=== PATIENT | female | born 1945 | race Caucasian/White ===

== ENCOUNTER 2017-07-04 08:32 | Day surgery (SDC) | payer MEDICARE ==
[~2017-07-04] VITALS: Ht 165.1 cm; Wt 59.3 kg
[~2017-07-04 08:32] MED LIST: ASCO10004 PO; CHOL500015 PO; HYDRO EYES PO; LEVO88TA2 PO; TERI2.4P SC; VITA400C43 PO; calcium PO
[2017-07-04] MEDS ORDERED: LACTATED RINGERS 1,000 ML IV SCH (09:18)
[2017-07-04 09:22] VITALS: BP 128/79
[2017-07-04] MEDS ORDERED: EPHEDRINE 50 MG/ML, 1ML ONE (11:15)
[2017-07-04] MEDS ORDERED: DEXAMETHASONE 4 MG/ML, 1ML ONE (11:15)
[2017-07-04] MEDS ORDERED: ONDANSETRON 2MG/ML, 2ML ONE (11:15)
[2017-07-04] MEDS ORDERED: PROPOFOL 10 MG/ML, 50ML ONE (11:15)
[2017-07-04] MEDS ORDERED: PROPOFOL 10 MG/ML, 20ML ONE (11:15)
[2017-07-04] MEDS ORDERED: FENTANYL PF 100 MCG/2ML ONE (11:34)
[2017-07-04] MEDS ORDERED: FENTANYL PF 100 MCG/2ML IV PRN (12:30)
[2017-07-04] MEDS ORDERED: ACETAMINOPHEN 325 MG TABLET PO PRN (12:30)
[2017-07-04] MEDS ORDERED: PROMETHAZINE 25 MG/ML, 1ML IV PRN (12:30)
[2017-07-04] MEDS ORDERED: HYDROmorphone 1 MG/ML, 1ML IV PRN (12:30)
[2017-07-04] MEDS ORDERED: OXYcodone 5 MG/5 ML ORAL.SOL UDC PO PRN (12:30)
== END 2017-07-04 13:30 ==
LOC: OUT 08:32
PROVIDERS: ATTEND Internal Medicine
DX: Z09 Encounter for follow-up examination after completed treatment for conditions other than malignant neoplasm (principal); D12.2 Benign neoplasm of ascending colon; K57.30 Diverticulosis of large intestine without perforation or abscess without bleeding; Z87.19 Personal history of other diseases of the digestive system; E03.9 Hypothyroidism, unspecified; Z88.8 Allergy status to other drugs, medicaments and biological substances
CPT/HCPCS: 45385; 88305; J1100; J2405; J2704; J3010; J7120

== ENCOUNTER → 2019-11-10 | Outpatient (CLI) | payer MEDICARE | END | disposition home or self-care (01) | LOC: EDSTATUS 11-07 15:00 → CFH 11:00 | PROVIDERS: ATTEND Obstetrics & Gynecology | DX: Z12.31 Encounter for screening mammogram for malignant neoplasm of breast (principal); N64.89 Other specified disorders of breast | CPT/HCPCS: 77067 ==

== ENCOUNTER → 2020-06-07 | Outpatient (CLI) | payer MEDICARE ==
[~2020-06-07] MED LIST changes: +BONE UP PO; +CHOL10003 PO; +DENO60DI INJ; +LEVO75TA PO; +LIFI1DRO EACHEYE; +Vitamin E PO
== END | disposition home or self-care (01) ==
LOC: STAR 14:10
PROVIDERS: ATTEND Internal Medicine Geriatric Medicine
DX: Z01.818 Encounter for other preprocedural examination (principal); K63.5 Polyp of colon; I44.4 Left anterior fascicular block; R00.1 Bradycardia, unspecified
CPT/HCPCS: 93005

== ENCOUNTER 2020-06-11 14:31 | Outpatient (CLI) | payer MEDICARE | END 2020-06-11 23:59 | disposition home or self-care (01) | LOC: STAR 14:31 | PROVIDERS: ATTEND Anesthesiology | DX: Z01.818 Encounter for other preprocedural examination (principal); Z11.59 Encounter for screening for other viral diseases | CPT/HCPCS: 36415; 87635 ==

== ENCOUNTER 2020-06-15 10:39 | Day surgery (SDC) | payer MEDICARE ==
[~2020-06-15] VITALS: Ht 165.1 cm; Wt 58.5 kg
[2020-06-15] MEDS ORDERED: CHLORHEXIDINE 15 ML UDC MM ONE (11:00)
[2020-06-15] MEDS ORDERED: CHLORHEXIDINE 15 ML UDC ONE (11:02)
[2020-06-15 11:03] VITALS: BP 123/70
[2020-06-15] MEDS ORDERED: PROPOFOL 10 MG/ML, 20ML ONE ×4 (11:52→12:42)
[2020-06-15] MEDS ORDERED: LACTATED RINGERS 1,000 ML IV SCH (12:00)
== END 2020-06-15 14:45 | disposition home or self-care (01) ==
LOC: OUT 10:39
PROVIDERS: ATTEND Internal Medicine Geriatric Medicine
DX: D12.2 Benign neoplasm of ascending colon (principal); E03.9 Hypothyroidism, unspecified; Z79.890 Hormone replacement therapy; Z79.899 Other long term (current) drug therapy; Z88.5 Allergy status to narcotic agent
CPT/HCPCS: 45380; 45381; 45385; 88305; A4648; J2704; J7120

== ENCOUNTER → 2021-06-17 | Outpatient (CLI) | payer MEDICARE ==
[~2021-06-17] MED LIST changes: +ASCO100018 PO; -ASCO10004 PO
== END | disposition home or self-care (01) ==
LOC: CFH 10:13
PROVIDERS: ATTEND Obstetrics & Gynecology
DX: Z12.31 Encounter for screening mammogram for malignant neoplasm of breast (principal)
CPT/HCPCS: 77063; 77067